=== PATIENT | female | born 1995 | race Caucasian/White ===

== ENCOUNTER 2024-10-26 11:57 | Emergency (ER) | payer SELFPAY ==
[2024-10-26 12:10] VITALS: BMI 24.9
--- NOTE | 2024-10-26 12:16 | ED.GENMED ---
History of Present Illness
General
Chief Complaint: Fall
Time Seen by Provider: 10/26/24 12:14
History of Present Illness
History of Present Illness:
28-year-old female presents the emergency department for evaluation of neck pain and right shoulder pain after being bucked off her horse approximately 30 minutes prior to arrival. Was not helmeted, did strike her head on the ground, predominantly
landed on the right side of her body. Denies back or chest pain, does not take blood thinners. No reported loss of consciousness. Denies any extremity weakness or numbness
Review of Systems
Review of Systems
Allergies reviewed?: Yes
All Other Systems: ROS reviewed and negative except as documented in HPI and ROS
Phy Exam
Physical Exam
Physical Exam:
GEN: Well appearing, NAD, WDWN
Eyes: PERRLA, EOMs intact, no scleral icterus
HENT: NCAT, oral mucosa moist, no JVD, no cervical adenopathy.
Lungs: CTAB, no wheezes, rales, rhonchi, normal chest wall excursion
Cardiac: RRR, no M/R/G, no peripheral edema. Radial pulses 2+ bilat
Abdomen: S, NT, ND, NABS, no masses or hepatosplenomegaly
Neuro: AO x 3, no focal deficits to BUE/BLE, normal sensation throughout
MSK: Diffuse swelling to the right shoulder with reproducible tenderness to the distal clavicle. No midline cervical, thoracic, or lumbar spine tenderness. Pelvis is stable with no crepitus. Minor abrasion with diffuse soft tissue swelling to the
left medial thigh, no bony deformity
Skin: No rashes, petechiae. Normal color, no pallor or jaundice.
Psych: Calm, cooperative, proper hygiene
Course
Orders/Labs/Results
Orders:
Orders
10/26/24 12:13
Test Result ONCE
10/26/24 12:14
CT Cervical Spine W/o Iv Contr Urgent
Comment:
Reason For Exam: bucked off horse
CT Head W/o Iv Contrast Urgent
Comment:
Reason For Exam: bucked off horse
Fentanyl Citrate/Pf [Sublimaze] 50 mcg IV NOW STA
CR Shoulder, Trauma - Right Urgent
Comment:
Reason For Exam: bucked off horse
10/26/24 12:16
Complete Blood Count/With Diff Urgent
Comprehensive Metabolic Panel Urgent
HCG, Serum Qualitative Screen Urgent
10/26/24 13:04
HYDROmorphone [Dilaudid] 0.25 mg IV NOW STA
10/26/24 14:34
Sling Right-Treatment ONCE
Abnormal Lab Results
10/26/24
12:16
RBC 3.95 L 10^6/uL
(4.20-5.40)
Hct 36.6 L %
(37.0-47.0)
MCH 32.2 H pg
(27.0-31.0)
Glucose 134 H mg/dl
(70-99)
10/26/24 12:16
10/26/24 12:16
Vital Signs
Initial and Last Documented VS:
Initial Vital Signs
Pulse Resp Pulse Ox
75 20 100
10/26/24 12:38 10/26/24 12:38 10/26/24 12:38
Last Documented Vital Signs
Pulse Resp BP Pulse Ox
62 14 111/77 100
10/26/24 13:30 10/26/24 13:30 10/26/24 13:00 10/26/24 13:15
MDM/Problems Addressed
MDM/Problems Addressed:
Imaging fortunately shows no events for intracranial or cervical spine injury however a clavicle fracture was identified. Placed in sling and will refer to orthopedics for outpatient follow-up
*Critical Care Note
Total Time (30-74mins, 75-104mins- exclusive of procedures): Not Applicable
ED Attending Note
-
Portions of this chart may have been created with voice recognition software.� Occasional wrong word or��sound alike� substitutions may have occurred due to the inherent limitations of voice recognition software.
Discharge Plan
Departure
Patient Disposition: Home (Routine Discharge)
Date of Disposition: 10/26/24
Time of Disposition: 14:04
Patient with high blood pressure during this ER visit?: No
Discharge Problem:
Closed fracture of right clavicle
Instructions: Broken Collarbone ED
Prescriptions:
New
oxycodone 5 mg tablet
5 mg PO Q8H PRN (Reason: Pain) Qty: 8 0RF
Referrals:
Werner Doe MD [Active] -
Stand Alone Forms: Return to Work
Interventions
Interventions:
*Risk Screen - Suicide Last Done: 10/26/24 12:14
*General Assessment Last Done: 10/26/24 12:14
*Neglect/Abuse Screening Last Done: 10/26/24 12:14
*ED COVID-19 Vaccine History Last Done: 10/26/24 12:14
*Nursing Disposition Last Done: 10/26/24 14:35
ED-Musculoskeletal Assessment Last Done: 10/26/24 12:11
ED- Neurological Assessment Last Done: 10/26/24 12:08
ED-Skin Assessment Last Done: 10/26/24 12:12
Discharge Date and Time
Discharge Date/Time: 10/26/24 14:40
Print Language: MAORI
[2024-10-26] MEDS: SUBLIMAZE 50 MCG IV (12:18)
[2024-10-26 12:31] LABS: % Basophils 0.9 % (0-2); % Eosinophils 1.5 % (0-6); % Immature Granulocytes 0.2 % (0-0.5); % Lymphocytes 38.7 % (20.5-51.1); % Neutrophils 51.7 % (42.2-75.2); Absolute Basophils 0.1 10^3/uL (0-0.2); Absolute Eosinophils 0.1 10^3/uL (0-0.7); Absolute Lymphocytes 2.1 10^3/uL (1.2-3.4); Absolute Monocytes 0.4 10^3/uL (0.1-0.6); Absolute Neutrophils 2.8 10^3/uL (1.4-6.5); Hematocrit 36.6 % (37.0-47.0); Hemoglobin 12.7 g/dL (12.0-16.0); Mean Corp Hgb Conc. 34.7 g/dL (33.0-37.0); Mean Corpuscular Hgb 32.2 pg (27.0-31.0); Mean Corpuscular Volume 92.7 fL (81.0-99.0); Mean Platelet Volume 9.7 fL (7.4-10.4); Nucleated Red Blood Cells % 0 %; Platelet Count 270 10^3/uL (130-400); Red Blood Cell Count 3.95 10^6/uL (4.20-5.40); Red Cell Dist. Width 12.1 % (11.5-14.5); White Blood Cell Count 5.4 10^3/uL (4.8-10.8)
[2024-10-26 12:39] LABS: HCG, Serum Qualitative Screen Negative
[2024-10-26 12:45] LABS: ALT (SGPT) 17 U/L (0-35); AST (SGOT) 25 U/L (14-36); Albumin 4.6 g/dl (3.5-5.0); Alkaline Phosphatase 49 U/L (38-126); Blood Urea Nitrogen 15 mg/dl (7-17); Carbon Dioxide 25 mmol/L (22-30); Chloride 103 mmol/L (98-107); Estimated Creatinine Clearance 109 ml/min; Glucose 134 mg/dl (70-99); Potassium 3.9 mmol/L (3.5-5.1); Sodium 137 mmol/L (135-145); Total Bilirubin 0.2 mg/dl (0.2-1.3); Total Protein 7.1 g/dl (6.3-8.2); eGFR > 60.00
[2024-10-26 13:00] VITALS: BP 111/77
[2024-10-26] MEDS: DILAUDID 0.25 MG IV (13:06)
== END 2024-10-26 14:40 | disposition home or self-care (01) ==
LOC: EMR 11:57
PROVIDERS: Physician Assistant; EMERGENCY PHYSICIAN Emergency Medicine
DX: S42.021A Displaced fracture of shaft of right clavicle, initial encounter for closed fracture (principal); S70.312A Abrasion, left thigh, initial encounter; V80.010A Animal-rider injured by fall from or being thrown from horse in noncollision accident, initial encounter
CPT/HCPCS: 99284; 96374; 96375; 70450; 72125; 73030; 80053; 84703; 85025

== ENCOUNTER → 2024-11-11 06:15 | Day surgery (SDC) | payer BC, SELFPAY ==
[2024-11-11] VITALS (10 sets, daily range): BP systolic 109–116; BP diastolic 54–77; BMI 23.5
[2024-11-11] MEDS: CELEBREX 200 MG PO (09:46)
[2024-11-11] MEDS: NORMOSOL-R/PLASMALYTE-A 1000 IV (10:10)
[2024-11-11] MEDS: ZOFRAN 4 MG IV (12:38)
[2024-11-11] MEDS: DILAUDID 0.25 MG IV (15:58)
== END ==
LOC: SDS 06:15
PROVIDERS: ATTENDING PHYSICIAN Orthopaedic Surgery
DX: S42.021A Displaced fracture of shaft of right clavicle, initial encounter for closed fracture (principal); V80.010A Animal-rider injured by fall from or being thrown from horse in noncollision accident, initial encounter; Y93.52 Activity, horseback riding
CPT/HCPCS: 23515; 73000; 76000; C1713